=== PATIENT | male | born 1965 | race Caucasian/White ===

== ENCOUNTER 2018-11-03 07:00 | Day surgery (SDC) | payer MEDICARE ==
[2018-11-01 15:54] LABS: BASOPHILS % (AUTO) 0.9 % (0.0-5.0); EOSINOPHILS % (AUTO) 1.7 % (0.0-8.0); HEMATOCRIT 48.4 % (42-54); LYMPHOCYTES % (AUTO) 24.6 % (21.0-51.0); MEAN CORPUSCULAR HEMOGLOBIN 27.1 pg (27.0-33.0); MEAN CORPUSCULAR HGB CONC 32.7 g/dL (32.0-36.0); MEAN CORPUSCULAR VOLUME 82.9 fL (79-99); MONOCYTES % (AUTO) 7.8 % (3.0-13.0); PLATELET COUNT (AUTO) 279 K/uL (130-400); RED BLOOD CELL COUNT(AUTO) 5.84 MIL/uL (4.50-6.20); RED CELL DISTRIBUTION WIDTH 15.6 % (11.0-15.5); WHITE BLOOD COUNT (AUTO) 5.7 K/uL (4.8-10.8)
[2018-11-01 16:18] LABS: CREATININE 1.3 mg/dL (0.5-1.5); POTASSIUM 4.5 mmol/L (3.5-5.1)
--- NOTE | 2018-11-01 16:30 | NUR ---
patient has hx of chronic cortisone replacement and hx of adrenal crisis. notified Reji Antoine CRNA, as Reji he will interview pt in holding are and premedicate as needed. pt was informed of plan. Informed Ricardo in OR that patient is allergic to vicryl suture to please make a note on board for staff to see.
[2018-11-03] VITALS (14 sets, daily range): BP systolic 103–130; BP diastolic 59–87
[~2018-11-03] VITALS: Ht 180.3 cm; Wt 97.1 kg
[~2018-11-03 07:00] MED LIST: AEC81 PO; BROM2.5T3 PO; ESOM20CA31 PO; FENO145T PO; HYDR-3894 PO; HYDR100V3 IJ; HYDR20TA23 PO; LEVO175T4 PO; TEST200V21 IM; TRAZ-187 PO
[2018-11-03] MEDS ORDERED: PROPOFOL 10 MG/ML 20ML VIAL IV ONE ×3 (07:32→08:52)
[2018-11-03] MEDS ORDERED: LIDOCAINE PF 2% 5ML ABBOJECT ONE (07:32)
[2018-11-03] MEDS ORDERED: METHYLPREDNISOLONE SOD SUCC 125MG/2ML VIAL ONE (07:32)
[2018-11-03] MEDS ORDERED: FENTANYL CITRATE PF 50 MCG/1 ML 2ML VIAL ONE (07:32)
[2018-11-03] MEDS ORDERED: LACTATED RINGERS 1000ML 1,000 ML IV ONE (07:37)
[2018-11-03] MEDS ORDERED: CEFTRIAXONE SODIUM 1 GM IVP ONE (08:00)
[2018-11-03] MEDS ORDERED: TRAM50TA4 PO (08:02)
[2018-11-03] MEDS ORDERED: ALPR0.5T8 PO (08:02)
[2018-11-03] MEDS ORDERED: MIDAZOLAM HCL 1 MG/ML 2ML VIAL ONE (08:22)
[2018-11-03] MEDS ORDERED: LIDOCAINE HCL 1% 20 ML VIAL ONE (08:29)
--- NOTE | 2018-11-03 10:10 | NUR ---
RECEIVE PT RECEIVED FROM PACU VIA STRETCHER AWAKE ALERT ORIENTED X3. PT STABLE. NO COMPLAINTS MADE. NO RECTAL BLEEDING NOTED. CALL CASTRO WITHIN REACH, WILL CALL TO COME IN TO ROOM.
--- NOTE | 2018-11-03 10:30 | NUR ---
VOID PT VOIDED 120 ML DARK YELLOW WITH BLOOD TINGE, NO CLOTS NOTED.
--- NOTE | 2018-11-03 10:45 | NUR ---
DISCHARGE PT DISCHARGED VIA WHEELCHAIR WITH , PT STABLE. NO COMPLAINTS MADE. DISCHARGE INSTRUCTIONS GIVEN TO AND PT, VERBALIZED UNDERSTANDING. PER , DR. GARCIA ALSO GAVE HER VERBAL DISCHARGE INSTRUCTIONS. PER OFFICE, DR. GARCIA WILL NOT BE IN FOR PT'S FF UP APPT IN 7-10 DAYS ORDERED, APPT SCHEDULED 11/23/18 BY OFFICE. PT/ INSTRUCTED TO CALL OR GO TO EMERGENCY ROOM IF ANY PROBLEMS ARISE BEFORE FF UP. VERBALIZED UNDERSTANDING.
== END 2018-11-03 10:45 | disposition home or self-care (01) ==
LOC: DAH 07:00
PROVIDERS: ATTEND Urology
DX: N41.9 Inflammatory disease of prostate, unspecified (principal); Z98.890 Other specified postprocedural states; Z79.899 Other long term (current) drug therapy; Z88.8 Allergy status to other drugs, medicaments and biological substances; Z87.891 Personal history of nicotine dependence; K21.9 Gastro-esophageal reflux disease without esophagitis; Z86.73 Personal history of transient ischemic attack (TIA), and cerebral infarction without residual deficits; E03.9 Hypothyroidism, unspecified; E78.5 Hyperlipidemia, unspecified; R56.9 Unspecified convulsions
CPT/HCPCS: 36415; 55700; 76942; 80048; 85025; 88305; A4215; A4218; A4351; A4358; A4510; A4600; J0696; J2001; J2250; J2704 ×3; J2930; J3010; J7030; J7120